=== PATIENT | female | born 1990 | race Asian ===

== ENCOUNTER → 2020-05-25 08:34 | Outpatient (CLI) | payer OTHER, SELFPAY ==
[2020-05-25 08:07] VITALS: BMI 23.9
[2020-05-25 12:01] LABS: Absolute Lymphocyte Count 2.67 X10^3/uL (0.83-4.51); Absolute Neutrophil Count 3.5 X10^3/uL (2.0-7.7); Basophil# 0.04 X10^3/uL; Basophil% 0.6 % (0-1); Eosinophil# 0.08 X10^3/uL; Eosinophils% 1.2 % (0-5); Hematocrit 43.5 % (37-47); Lymphocyte # 2.67 X10^3/ul (4.0); Lymphocyte % 39.3 % (19-41); Mean Corp Hgb Conc 32.2 g/dL (32-36); Mean Corpuscular Volume 90.2 fL (81-99); Mean Platelet Vol. 10.7 fl (6.2-12.0); Monocyte# 0.47 X10^3/uL; Monocyte% 6.9 % (0-10); NRBC Flagged by Analyzer 0 % (0-5); Neutrophil # 3.52 X10^3/uL (2.7-7.7); Neutrophil % 51.7 % (47-70); Platelet Count 298 K/mm3 (150-450); RBC Distribution Width CV 11.9 % (11.6-14.6); RBC Distribution Width SD 39.8 fl (35.1-43.9); Red Blood Count 4.82 M/mm3 (4.2-5.4); White Blood Count 6.8 K/mm3 (4.4-11.0)
[2020-05-25 12:02] LABS: Internal QC Validated? YES +Cl - CLEAR BKGD; Pregnancy, Urine Negative Negative
[2020-05-25 12:12] LABS: Vitamin B12 765 pg/mL (211-911); Vitamin D,25 Hydroxy 26.9 ng/mL
[2020-05-25 12:28] LABS: ALB/GLOB Ratio 1.1 RATIO (0.9-2.4); AST(SGOT) 19 U/L (15-37); Alanine Aminotransfer ALT/SGPT 24 U/L (13-56); Alkaline Phosphatase 84 U/L (45-117); Anion Gap 3 (5-15); BUN 9 mg/dL (7-18); BUN/Creat Ratio 12.8 RATIO (10-20); Calcium,Total 9.1 mg/dL (8.5-10.1); Chloride 107 mmol/L (98-107); Cholesterol 158 mg/dL (200); EST Glomerular Filtration Rate 104 mL/min (>60); Est Glom Filt Rate - Afr Amer 126 mL/min (>60); Globulin 3.8 g/dL (2.2-4.2); Glucose 93 mg/dL (74-106); High Density Lipoprotein 48 mg/dL; Potassium 4.1 mmol/L (3.5-5.1); Protein, Total 7.8 g/dL (6.4-8.2); Sodium Level 140 mmol/L (136-145); Thyroid Stim Hormone (TSH) 3.63 uIU/mL (0.358-3.74); Triglycerides 86 mg/dL; Very Low Density Lipoprotein 17 mg/dL (5-40)
== END ==
PROVIDERS: PCP Internal Medicine; Referring Provider Nurse Practitioner Family; Visit Provider Nurse Practitioner Family
DX: Z00.00 Encounter for general adult medical examination without abnormal findings (principal); Z13.29 Encounter for screening for other suspected endocrine disorder; N92.6 Irregular menstruation, unspecified; E53.8 Deficiency of other specified B group vitamins; E55.9 Vitamin D deficiency, unspecified
CPT/HCPCS: 36415; 80053; 80061; 81025; 82306; 82607; 84443; 85025

== ENCOUNTER → 2020-09-08 | Outpatient (CLI) | payer OTHER, SELFPAY ==
[2020-09-08 08:17] VITALS: BMI 23.9
[2020-09-13 18:49] LABS: HPV APTIMA, High Risk Negative (Negative)
== END | disposition home or self-care (01) ==
LOC: LABSPEC 16:42
PROVIDERS: PCP Internal Medicine; Referring Provider Obstetrics & Gynecology; Visit Provider Obstetrics & Gynecology
DX: Z12.4 Encounter for screening for malignant neoplasm of cervix (principal)
CPT/HCPCS: 87624; 88175; G0145

== ENCOUNTER → 2020-09-10 16:14 | Outpatient (CLI) | payer OTHER, SELFPAY ==
[2020-09-08 08:17] VITALS: BMI 23.9
--- NOTE | 2020-09-10 16:24 | US_ITS ---
STUDY: ULTRASOUND OF THE FEMALE PELVIS - COMPLETE REASON FOR EXAM: Female, 30 years old. INFERTILITY LMP: 09/01/2020 TECHNIQUE: Transabdominal and endovaginal TECHNICAL QUALITY: Adequate. COMPARISON: None. FINDINGS: The uterus is anteverted and is in a midline position. The uterus measures 6.8 x 5.4 x 2.7 cm with possible arcuate variant. Normal uterine cervix. The endometrium measures 5 mm in thickness, and is hyperechoic. There is no demonstrated endometrial mass. There is no demonstrated myometrial mass. I.U.D. - The patient does not have an I.U.D. The right ovary is visualized. The right ovary measures 3.4 x 2.5 x 2.5 cm. There is no right ovarian cyst or ovarian mass. There is no visualized right adnexal mass or complex lesion. There is normal arterial and normal venous vascularity. The left ovary is visualized. The left ovary measures 4.1 x 3.4 x 2.3 cm. There is no left ovarian cyst or ovarian mass. There is no visualized left adnexal mass or complex lesion. There is normal arterial and normal venous vascularity. There is no fluid in the cul-de-sac. US/Transvaginal Non- IMPRESSION: Possible arcuate uterus.. Electronically Signed: Nir Alfaro DO at 23:28 EST Tel [phone], Service support ,
--- NOTE | 2020-09-10 16:24 | US_ITS ---
STUDY: ULTRASOUND OF THE FEMALE PELVIS - COMPLETE REASON FOR EXAM: Female, 30 years old. INFERTILITY LMP: 09/01/2020 TECHNIQUE: Transabdominal and endovaginal TECHNICAL QUALITY: Adequate. COMPARISON: None. FINDINGS: The uterus is anteverted and is in a midline position. The uterus measures 6.8 x 5.4 x 2.7 cm with possible arcuate variant. Normal uterine cervix. The endometrium measures 5 mm in thickness, and is hyperechoic. There is no demonstrated endometrial mass. There is no demonstrated myometrial mass. I.U.D. - The patient does not have an I.U.D. The right ovary is visualized. The right ovary measures 3.4 x 2.5 x 2.5 cm. There is no right ovarian cyst or ovarian mass. There is no visualized right adnexal mass or complex lesion. There is normal arterial and normal venous vascularity. The left ovary is visualized. The left ovary measures 4.1 x 3.4 x 2.3 cm. There is no left ovarian cyst or ovarian mass. There is no visualized left adnexal mass or complex lesion. There is normal arterial and normal venous vascularity. There is no fluid in the cul-de-sac. US/Pelvic (Non ) IMPRESSION: Possible arcuate uterus.. Electronically Signed: Nir Alfaro DO at 23:28 EST Tel [phone], Service support ,
== END ==
PROVIDERS: PCP Internal Medicine; Referring Provider Obstetrics & Gynecology; Visit Provider Obstetrics & Gynecology
DX: N97.9 Female infertility, unspecified (principal)
CPT/HCPCS: 76830; 76856

== ENCOUNTER → 2020-11-07 | Outpatient (CLI) | payer OTHER, SELFPAY ==
[2020-09-08 08:17] VITALS: BMI 23.9
[2020-11-07 11:38] LABS: Prolactin 13.4 ng/mL
== END | disposition home or self-care (01) ==
LOC: LABSPEC 10:25 → LAB 12:55 → LABSPEC 11-08 08:04
PROVIDERS: PCP Internal Medicine; Referring Provider Obstetrics & Gynecology; Visit Provider Obstetrics & Gynecology
DX: N97.9 Female infertility, unspecified (principal)
CPT/HCPCS: 36415; 82627; 84146; 84403; 84443; 82626

== ENCOUNTER → 2021-01-10 | Outpatient (CLI) | payer OTHER, SELFPAY ==
[2021-01-10 14:20] VITALS: BMI 23.9
[2021-01-10 18:50] LABS: Amphetamine Urine VISTA NEGATIVE (<1000 ng/mL); Barbiturate Urine VISTA NEGATIVE (< 200 ng/mL); Benzodiazepine Urine VISTA NEGATIVE (< 200 ng/mL); Cocaine Urine VISTA NEGATIVE (< 300 ng/mL); Ecstacy Urine VISTA NEGATIVE (< 500 ng/mL); Methadone Urine VISTA NEGATIVE (< 300 ng/mL); PCP Urine VISTA NEGATIVE (< 25 ng/mL); THC Urine VISTA NEGATIVE (< 50 ng/mL); Vista UDS pH Range 6
[2021-01-13 04:12] LABS: Chlamydia By Nucleic Acid AMP Negative (Negative)
[2021-01-13 15:46] LABS: Gonococcus By Nucleic Acid AMP Negative (Negative)
== END | disposition home or self-care (01) ==
LOC: LABSPEC 16:34
PROVIDERS: PCP Internal Medicine; Referring Provider Obstetrics & Gynecology; Visit Provider Obstetrics & Gynecology
DX: Z34.90 Encounter for supervision of normal pregnancy, unspecified, unspecified trimester (principal)
CPT/HCPCS: 80307; 87086; 87491; 87591

== ENCOUNTER → 2021-01-28 12:18 | Outpatient (CLI) | payer BC, SELFPAY ==
[2021-01-10 14:20] VITALS: BMI 23.9
[2021-01-28 13:12] LABS: Absolute Lymphocyte Count 3.36 X10^3/uL (0.83-4.51); Absolute Neutrophil Count 8.3 X10^3/uL (2.0-7.7); Basophil# 0.05 X10^3/uL; Basophil% 0.4 % (0-1); Eosinophil# 0.17 X10^3/uL; Eosinophils% 1.4 % (0-5); Hematocrit 39.7 % (37-47); Hemoglobin 13.2 g/dL (12.0-15.0); Lymphocyte # 3.36 X10^3/ul (0.83-4.51); Lymphocyte % 26.8 % (19-41); Mean Corp Hgb Conc 33.2 g/dL (32-36); Mean Corpuscular Hgb 29.3 pg (27.0-32.0); Mean Platelet Vol. 10.7 fl (6.2-12.0); Monocyte# 0.67 X10^3/uL; Monocyte% 5.3 % (0-10); NRBC Flagged by Analyzer 0 % (0-5); Neutrophil # 8.27 X10^3/uL (2.7-7.7); Neutrophil % 65.9 % (47-70); Platelet Count 282 K/mm3 (150-450); RBC Distribution Width CV 12.3 % (11.6-14.6); RBC Distribution Width SD 39.2 fl (35.1-43.9); Red Blood Count 4.51 M/mm3 (4.2-5.4); White Blood Count 12.6 K/mm3 (4.4-11.0)
[2021-01-28 13:23] LABS: NATERA MAILED SPECIMEN
[2021-01-28 14:27] LABS: HIV - WCH Non-Reactive (Nonreactive); Hepatitis B Surface Antigen Non-Reactive (Nonreactive); Hepatitis C Antibody Non-Reactive (Nonreactive); Rubella IgG Reactive (Nonreactive); Syphilis Antibodies Non-reactive
== END ==
PROVIDERS: PCP Internal Medicine; Referring Provider Obstetrics & Gynecology; Visit Provider Obstetrics & Gynecology
DX: Z34.81 Encounter for supervision of other normal pregnancy, first trimester (principal); Z31.430 Encounter of female for testing for genetic disease carrier status for procreative management
CPT/HCPCS: 36415; 85025; 86703; 86762; 86780; 86803; 86850; 86900; 86901; 87340

== ENCOUNTER → 2021-03-28 | Outpatient (CLI) | payer BC, SELFPAY ==
[2021-03-28 09:45] VITALS: BMI 24.3
== END | disposition home or self-care (01) ==
PROVIDERS: PCP Nurse Practitioner Family; Referring Provider Obstetrics & Gynecology; Visit Provider Obstetrics & Gynecology
DX: O26.899 Other specified pregnancy related conditions, unspecified trimester (principal); R10.2 Pelvic and perineal pain; Z3A.00 Weeks of gestation of pregnancy not specified
CPT/HCPCS: 87086

== ENCOUNTER → 2021-03-29 08:07 | Outpatient (CLI) | payer BC, SELFPAY ==
[2021-03-28 09:45] VITALS: BMI 24.3
--- NOTE | 2021-03-29 08:15 | US_ITS ---
STUDY: SECOND AND THIRD TRIMESTER OBSTETRICAL ULTRASOUND REASON FOR EXAM: Female, 30 years old anatomy LMP: 11/06/2020. TECHNIQUE: Transabdominal TECHNICAL QUALITY: Adequate. PRIOR ULTRASOUND: None. FINDINGS: There is a single intrauterine fetus. The fetus is in a cephalic presentation. There is demonstrated cardiac activity with a heart rate of 157 bpm. There is a normal amniotic fluid volume. The largest amniotic fluid pocket measures 4.2 cm x 7.4 cm. The amniotic fluid index (FERNANDA) is within normal limits. The placenta is posterior in location and is not low lying. There are Grade 0 placental changes. The cervix measures 5.5 cm in length. The adnexal regions are not visualized. BIOMETRY: BPD: 4.54 cm: 19 weeks, 5 days HC: 16.84 cm: 19 weeks, 3 days AC: 15.04 cm: 20 weeks, 1 days FL: 3.25 cm: 20 weeks, 1 days CI: 79.8% FL/BPD: 71.7% FL/HC: FL/AC: 21.6% HC/AC: 1.12 age by current US: 19 weeks, 3 days. PHOEBE by current US: 08/20/2021. Estimated weight: 337 grams, +/- 51 grams, 31 %. Age by LMP: 20 weeks, 3 days. PHOEBE by LMP: 08/13/2021. ANATOMY: Gender: Female Cranium: Normal lateral ventricles. Normal choroid plexus. Normal cerebellum. Normal cisterna magna. Normal face, nose and lips. Chest: Normal 4-chamber heart. Abdomen/Pelvis: Normal diaphragm. Normal stomach. Normal abdominal wall. Normal cord insertion. Normal 3 vessel cord. Normal kidneys. Normal bladder. Spine: Normal cervical spine. Normal thoracic spine. Normal lumbar spine. Normal sacrum. Extremities: Normal bilateral upper extremities. Normal bilateral lower extremities. IMPRESSION: Single live intrauterine gestation with a mean gestational age of 19 weeks and 3 days. Electronically Signed: Yehuda Osuna MD at 11:34 EDT , Service support , STUDY: FIRST TRIMESTER OBSTETRICAL ULTRASOUND REASON FOR EXAM: Female, 30 years old anatomy TECHNIQUE: Transvaginal TECHNICAL QUALITY: Adequate. PRIOR ULTRASOUND: None. FINDINGS: The cervix measures 5.5 cm in length. US/OB Anatomy Scan IMPRESSION: The cervix measures 5.5 cm in length. Electronically Signed: Yehuda Osuna MD at 11:35 EDT , Service support ,
== END ==
PROVIDERS: PCP Nurse Practitioner Family; Referring Provider Obstetrics & Gynecology; Visit Provider Obstetrics & Gynecology
DX: Z34.02 Encounter for supervision of normal first pregnancy, second trimester (principal); Z3A.19 19 weeks gestation of pregnancy
CPT/HCPCS: 76805; 76817

== ENCOUNTER → 2021-05-21 08:13 | Outpatient (CLI) | payer BC, SELFPAY ==
[2021-05-21 09:25] LABS: Absolute Lymphocyte Count 2.91 X10^3/uL (0.83-4.51); Absolute Neutrophil Count 8.6 X10^3/uL (2.0-7.7); Basophil# 0.06 X10^3/uL; Basophil% 0.5 % (0-1); Eosinophil# 0.12 X10^3/uL; Eosinophils% 0.9 % (0-5); Hematocrit 36.4 % (37-47); Hemoglobin 11.8 g/dL (12.0-15.0); Lymphocyte # 2.91 X10^3/ul (0.83-4.51); Lymphocyte % 22.9 % (19-41); Mean Corp Hgb Conc 32.4 g/dL (32-36); Mean Corpuscular Hgb 29.8 pg (27.0-32.0); Mean Corpuscular Volume 91.9 fL (81-99); Monocyte# 0.74 X10^3/uL; Monocyte% 5.8 % (0-10); NRBC Flagged by Analyzer 0 % (0-5); Neutrophil # 8.59 X10^3/uL (2.7-7.7); Neutrophil % 67.5 % (47-70); Platelet Count 304 K/mm3 (150-450); RBC Distribution Width CV 12.8 % (11.6-14.6); RBC Distribution Width SD 43.2 fl (35.1-43.9); Red Blood Count 3.96 M/mm3 (4.2-5.4); White Blood Count 12.7 K/mm3 (4.4-11.0)
[2021-05-21 09:49] LABS: Glucose Challenge Gest 1H 50g 193 mg/dL (70-140)
== END ==
PROVIDERS: PCP Nurse Practitioner Family; Referring Provider Obstetrics & Gynecology; Visit Provider Obstetrics & Gynecology
DX: Z34.01 Encounter for supervision of normal first pregnancy, first trimester (principal); Z13.1 Encounter for screening for diabetes mellitus
CPT/HCPCS: 36415; 82950; 85025

== ENCOUNTER → 2021-06-02 09:33 | Outpatient (CLI) | payer BC, SELFPAY ==
[2021-06-02 10:49] LABS: Glucose GTT-Gestation. Fasting 101 mg/dL (<105)
[2021-06-02 12:05] LABS: Glucose GTT-Gestational 1 Hr 203 mg/dL (<190)
[2021-06-02 13:07] LABS: Glucose GTT-Gestational 2 Hr 149 mg/dL (<165)
[2021-06-02 14:05] LABS: Glucose GTT-Gestational 3 Hr 98 L (<145)
== END ==
PROVIDERS: Obstetrics & Gynecology; PCP Nurse Practitioner Family; Referring Provider Obstetrics & Gynecology; Visit Provider Obstetrics & Gynecology
DX: Z13.1 Encounter for screening for diabetes mellitus (principal)
CPT/HCPCS: 82951; 82952

== ENCOUNTER → 2021-06-20 09:00 | Outpatient (CLI) | payer BC, SELFPAY ==
--- NOTE | 2021-06-20 09:08 | US_ITS ---
STUDY: SECOND AND THIRD TRIMESTER OBSTETRICAL ULTRASOUND - LIMITED REASON FOR EXAM: Female, 30 years old growth -- 32 weeks LMP: 11/06/2020. PRIOR ULTRASOUND: Comparison is made with prior study dated 03/29/2001. TECHNIQUE: Transabdominal TECHNICAL QUALITY: Adequate. FINDINGS: There is a single intrauterine fetus. The fetus is in a cephalic presentation. There is demonstrated cardiac activity with a heart rate of 160 bpm. There is a normal amniotic fluid volume. The largest amniotic fluid pocket measures 6.7 cm. The amniotic fluid index (FERNANDA) is 16.4 cm. The placenta is posterior in location and is not low lying. There are Grade 0 placental changes. The cervix measures 3.2 cm in length. BIOMETRY: BPD: 7.89 cm: 31 weeks, 4 days HC: 29.09 cm: 32 weeks, 0 days AC: 20.56 cm: 32 weeks, 4 days FL: 6.34 cm: 32 weeks, 5 days Age by LMP: 32 weeks, 2 days. PHOEBE by LMP: 08/13/2021. age by prior US: 31 weeks, 2 days. PHOEBE by prior US: 08/20/2021. age by current US: 32 weeks, 1 days. PHOEBE by current US: 08/14/2021. Estimated weight: 2008 grams, +/- 31 grams, 49 percentile. US/OB Limited With Biometrics IMPRESSION: Single live intrauterine gestation with a mean gestational age of 31 weeks and 2 days. The measurements obtained today fall within normal expected range. Electronically Signed: Yehuda Osuna MD at 15:44 EDT , Service support ,
== END ==
PROVIDERS: PCP Nurse Practitioner Family; Referring Provider Obstetrics & Gynecology; Visit Provider Obstetrics & Gynecology
DX: O24.419 Gestational diabetes mellitus in pregnancy, unspecified control (principal); Z3A.31 31 weeks gestation of pregnancy
CPT/HCPCS: 76816

== ENCOUNTER 2021-06-29 12:30 | Outpatient (RCR) | payer BC, SELFPAY | END 2021-07-03 23:59 | LOC: DC 12:30 | PROVIDERS: PCP Nurse Practitioner Family; Visit Provider Obstetrics & Gynecology | DX: O24.419 Gestational diabetes mellitus in pregnancy, unspecified control (principal); Z3A.00 Weeks of gestation of pregnancy not specified | CPT/HCPCS: 97802; 97803 ==

== ENCOUNTER 2021-07-06 14:55 | Outpatient (RCR) | payer BC, SELFPAY | END 2021-08-02 23:59 | LOC: DC 14:55 | PROVIDERS: PCP Nurse Practitioner Family; Visit Provider Obstetrics & Gynecology | DX: O24.419 Gestational diabetes mellitus in pregnancy, unspecified control (principal); Z3A.00 Weeks of gestation of pregnancy not specified ==

== ENCOUNTER → 2021-07-18 09:04 | Outpatient (CLI) | payer BC, SELFPAY ==
--- NOTE | 2021-07-18 09:09 | US_ITS ---
STUDY: SECOND AND THIRD TRIMESTER OBSTETRICAL ULTRASOUND - LIMITED REASON FOR EXAM: Female, 30 years old growth -- 36 weeks LMP: 11/06/2020. PRIOR ULTRASOUND: Comparison is made with prior study dated 06/20/2021. TECHNIQUE: Transabdominal TECHNICAL QUALITY: Adequate. FINDINGS: There is a single intrauterine fetus. The fetus is in a cephalic presentation. There is demonstrated cardiac activity with a heart rate of 141 bpm. There is a normal amniotic fluid volume. The largest amniotic fluid pocket measures 7.9 cm. The amniotic fluid index (FERNANDA) is 18.8 cm. The placenta is fundal and posterior in location. There are Grade 1 placental changes. BIOMETRY: BPD: 8.73 cm: 35 weeks, 1 days HC: 31.66 cm: 35 weeks, 4 days AC: 32.6 cm: 36 weeks, 3 days FL: 7.14 cm: 37 weeks, 4 days Age by LMP: 36 weeks, 2 days. PHOEBE by LMP: 08/13/2021. age by prior US: 36 weeks, 1 days. PHOEBE by prior US: 08/14/2021. age by current US: 35 weeks, 6 days. PHOEBE by current US: 08/16/2021. Estimated weight: 2935 grams, +/- 440 grams, 56 percentile. US/OB Limited With Biometrics IMPRESSION: Single live intrauterine gestation with a mean gestational age of 36 weeks and 1 day. The measurements obtained today fall within the normal expected range. Electronically Signed: Yehuda Osuna MD at 15:28 EST , Service support ,
== END ==
PROVIDERS: PCP Nurse Practitioner Family; Visit Provider Obstetrics & Gynecology
DX: O24.419 Gestational diabetes mellitus in pregnancy, unspecified control (principal); Z3A.36 36 weeks gestation of pregnancy
CPT/HCPCS: 76816

== ENCOUNTER → 2021-07-22 | Outpatient (CLI) | payer BC, SELFPAY | END | disposition home or self-care (01) | PROVIDERS: PCP Nurse Practitioner Family; Visit Provider Obstetrics & Gynecology | DX: Z34.03 Encounter for supervision of normal first pregnancy, third trimester (principal) | CPT/HCPCS: 87077; 87081; 87186 ==

== ENCOUNTER 2021-08-07 19:35 | Inpatient (IN) | payer BC, SELFPAY ==
[2021-08-07 19:48] VITALS: BMI 28.8
[2021-08-07 19:55] VITALS: BP 120/75; PULSE 100; TEMP 36.4
[2021-08-07 19:57] VITALS: PULSE 103; O2SAT 98
[2021-08-07] MEDS: Lactated Ringers 1,000 ML 50 ML IV (20:25)
[2021-08-07 21:12] LABS: Absolute Lymphocyte Count 3.14 X10^3/uL (0.83-4.51); Absolute Neutrophil Count 6.2 X10^3/uL (2.0-7.7); Basophil# 0.06 X10^3/uL; Basophil% 0.6 % (0-1); Eosinophil# 0.15 X10^3/uL; Eosinophils% 1.4 % (0-5); Hematocrit 41.3 % (37-47); Hemoglobin 13.7 g/dL (12.0-15.0); Lymphocyte # 3.14 X10^3/ul (0.83-4.51); Lymphocyte % 29.3 % (19-41); Mean Corp Hgb Conc 33.2 g/dL (32-36); Mean Corpuscular Hgb 28.7 pg (27.0-32.0); Mean Corpuscular Volume 86.4 fL (81-99); Monocyte# 1.01 X10^3/uL; Monocyte% 9.4 % (0-10); NRBC Flagged by Analyzer 0 % (0-5); Neutrophil # 6.24 X10^3/uL (2.7-7.7); Neutrophil % 58.2 % (47-70); Platelet Count 279 K/mm3 (150-450); RBC Distribution Width SD 47.1 fl (35.1-43.9); Red Blood Count 4.78 M/mm3 (4.2-5.4); White Blood Count 10.7 K/mm3 (4.4-11.0)
[2021-08-07 21:13] VITALS: BP 107/73; PULSE 103; PULSE 105; TEMP 36.6; O2SAT 98
[2021-08-07 21:20] LABS: Bedside Glucose 86 mg/dL (70-110)
[2021-08-07 22:13] VITALS: BP 111/69; PULSE 96; TEMP 36.4; O2SAT 98
--- NOTE | 2021-08-07 22:16 | HP.PCM.OB_ITS ---
HPI - General General Date of Admission: 08/07/21 HPI Narrative ELVIS CRAIN, is a 30 @ 39 weeks 1 day who presents for induction of labor for gestational diabetes, diet controlled Maternal Data Information PHOEBE Calculator Estimated Delivery Date Method Current WG Current Estimate 08/13/21 LMP (Certain) 39w 1d Other Estimates 08/14/21 Ultrasound #1 39w 0d PFSH PFSH Medical History Abnormal glucose affecting Gestational diabetes No pertinent past medical history Positive GBS test Home Medications docosahexaenoic acid 200 mg capsule mg PO 01/10/21 [History Last Taken Unknown] cholecalciferol (vitamin D3) 25 mcg (1,000 unit) capsule 25 mcg PO DAILY 06/20/21 [History Last Taken Unknown] metformin 500 mg tablet 1,000 mg PO BID #224 tab 06/21/21 [Rx Last Taken Unknown] Allergy/AdvReac Type Severity Reaction Status Date / Time No Known Allergies Allergy Verified 08/05/21 15:09 Family History Father Hypertension Diabetes Mother Diabetes Social History Smoking Status: Never smoker alcohol intake: current alcohol intake frequency: holidays/special occasions only substance use type: does not use caffeine: Yes what type of physical activity do you participate in: walking frequency: daily seatbelt use: always do you feel safe at home: Yes additional social history: - Bryant History 1 Elective abortions Hx Para 0 Spontaneous abortions Hx # Term Pregnancies Ectopic pregnancies Hx # Pregnancies Multiple births # of living children Visit Details Expected Delivery Route/Plan Labor Preferences- CB/BF classes: [] labor support person: Bryant labor intervention preferences: understands IOL at 39 weeks. pain management options preferred: planning for epidural cut cord/dad catch: 60 second cord cut delay. Dad is very sensitive and may not be able to cut cord : plans to bottle feed PP control planned: [] discussed possible routes of delivery and associated risks: discussed vag vs 07/27 special requests: none Plans covid status: received Soicos x2 doses - last dose 05/13 flu vaccine: [] tdap vaccine: 06/06 rhogam: [] LARC form signed: [] Problem list reviewed and updated with the most current plan of care details and appropriate orders placed. Relevant counseling for the gestational age provided. Continue routine care and follow up unless otherwise noted in visit notes/problem list details OB Flowsheet Initial Weight: Not Recorded Date -?-?-?-?-?-?-?-?-?-?-?-?- EGA Weight BP Urine Prot -?-?-?-?-?-?-?-?-?-?-?-?- Glucose FHR FuHt Pres Dilation -?-?-?-?-?-?-?-?-?-?-?-?- Effaced St Visit Note 01/10/21 -?-?-?-?-?-?-?-?-?-?-?-?- 9w 2d 129 lb 6 oz 102/62 -?-?-?-?-?-?-?-?-?-?-?-?- 170 -?-?-?-?-?-?-?-?-?-?-?-?- GP - CRL consist ent with LMP 02/11/21 -?-?-?-?-?-?-?-?-?-?-?-?- 13w 6d 125 lb 2 oz 120/78 Nega tive -?-?-?-?-?-?-?-?-?-?-?-?- Negative -?-?-?-?-?-?-?-?-?-?-?-?- 03/11/21 -?-?-?-?-?-?-?-?-?-?-?-?- 17w 6d 130 lb 8 oz 108/70 -?-?-?-?-?-?-?-?-?-?-?-?- 150 -?-?-?-?-?-?-?-?-?-?-?-?- GP - no cramping or bleeding. +FM. Discussed tx of constipation. 03/28/21 -?-?-?-?-?-?-?-?-?-?-?-?- 20w 2d 133 lb 4 oz 100/68 Nega tive -?-?-?-?-?-?-?-?-?-?-?-?- Negative 155 0 -?-?-?-?-?-?-?-?-?-?-?-?- GP - work in for cramping. Pain consistent with round ligament pain. Cervix closed. Anatomy changed to [facility] due to inability to schedule until 24w with MFM. 04/08/21 -?-?-?-?-?-?-?-?-?-?-?-?- 21w 6d 137 lb 100/60 -?-?-?-?-?-?-?-?-?-?-?-?- 150 -?-?-?-?-?-?-?-?-?-?-?-?- SM- no vb lof go od fm no reuglar ctx 05/06/21 -?-?-?-?-?-?-?-?-?-?-?-?- 25w 6d 143 lb 6 oz 110/80 Nega tive -?-?-?-?-?-?-?-?-?-?-?-?- Negative 145 25 -?-?-?-?-?-?-?-?-?-?-?-?- GP - no LOF, VB, DFM, ctx. Discussed management of constipation. GCT next visit. 05/20/21 -?-?-?-?-?-?-?-?-?-?-?-?- 27w 6d 144 lb 102/70 Negative -?-?-?-?-?-?-?-?-?-?-?-?- Negative 155 28 -?-?-?-?-?-?-?-?-?-?-?-?- GP - no LOF, VB, DFM, ctx. Received second dose of covid vaccine 05/13. Discussed TDAP and flu. Plan GCT tomorrow. 06/06/21 -?-?-?-?-?-?-?-?-?-?-?-?- 30w 2d 148 lb 8 oz 114/78 Nega tive -?-?-?-?-?-?-?-?-?-?-?-?- Negative 140 30 -?-?-?-?-?-?-?-?-?-?-?-?- GP - no LOF, VB, DFM, ctx. Discussed GDM diagnosis and management. Has a glucometer at home - will call with brand. 06/20/21 -?-?-?-?-?-?-?-?-?-?-?-?- 32w 2d 146 lb 100/70 Negative -?-?-?-?-?-?-?-?-?-?-?-?- Negative 154 32 -?-?-?-?-?-?-?-?-?-?-?-?- MH-good Fm. No V B, LOF. Saw endocrine today. Plans metformin. Normal growth US today. NST end of week 06/24/21 -?-?-?-?-?-?-?-?-?-?-?-?- 32w 6d 146 lb 2 oz 108/80 Nega tive -?-?-?-?-?-?-?-?-?-?-?-?- Negative -?-?-?-?-?-?-?-?-?-?-?-?- 06/27/21 -?-?-?-?-?-?-?-?-?-?-?-?- 33w 2d 145 lb 8 oz Negative -?-?-?-?-?-?-?-?-?-?-?-?- Negative -?-?-?-?-?-?-?-?-?-?-?-?- 06/29/21 -?-?-?-?-?-?-?-?-?-?-?-?- 33w 4d 146 lb 4 oz 104/70 Nega tive -?-?-?-?-?-?-?-?-?-?-?-?- Negative 140 -?-?-?-?-?-?-?-?-?-?-?-?- JV- reactive NST . Seeing area field worker today. glucose log reviewed. Fasting's in t he 90's. 07/04/21 -?-?-?-?-?-?-?-?-?-?-?-?- 34w 2d 145 lb 4 oz 112/76 Nega tive -?-?-?-?-?-?-?-?-?-?-?-?- Negative 140 -?-?-?-?-?-?-?-?-?-?-?-?- SM- no vb lof go od fm no reuglar ctx reviewed BS 07/07/21 -?-?-?-?-?-?-?-?-?-?-?-?- 34w 5d 146 lb 102/62 Negative -?-?-?-?-?-?-?-?-?-?-?-?- Negative 140 -?-?-?-?-?-?-?-?-?-?-?-?- SM- reviewed BS, no vb lof good fm no reuglar ctx 07/11/21 -?-?-?-?-?-?-?-?-?-?-?-?- 35w 2d 147 lb 106/72 Negative -?-?-?-?-?-?-?-?-?-?-?-?- Negative 140 -?-?-?-?-?-?-?-?-?-?-?-?- SM- nst 07/13/21 -?-?-?-?-?-?-?-?-?-?-?-?- 35w 4d 146 lb 2 oz 98/60 Trac e -?-?-?-?-?-?-?-?-?-?-?-?- Negative 150 -?-?-?-?-?-?-?-?-?-?-?-?- JV- NST reactive . plan for GBS at 36 weeks and IOL at 39 weeks. 07/18/21 -?-?-?-?-?-?-?-?-?-?-?-?- 36w 2d 150 lb 2 oz 110/72 Nega tive -?-?-?-?-?-?-?-?-?-?-?-?- Negative 150 -?-?-?-?-?-?-?-?-?-?-?-?- MH-NST only reac tive 07/22/21 -?-?-?-?-?-?-?-?-?-?-?-?- 36w 6d 149 lb 110/74 Negative -?-?-?-?-?-?-?-?-?-?-?-?- Negative 140 -?-?-?-?-?-?-?-?-?-?-?-?- JV- no lof, vagi nal bleeding, or dec fm. NST reactive and gbs collected. glucose log reviewed and normal 07/25/21 -?-?-?-?-?-?-?-?-?-?-?-?- 37w 2d 146 lb 8 oz 104/74 Nega tive -?-?-?-?-?-?-?-?-?-?-?-?- Negative 140 -?-?-?-?-?-?-?-?-?-?-?-?- MH-NST only reac tive. 07/27/21 -?-?-?-?-?-?-?-?-?-?-?-?- 37w 4d 148 lb 108/74 Negative -?-?-?-?-?-?-?-?-?-?-?-?- Negative 145 37 Cephalic 1 -?-?-?-?-?-?-?-?-?-?-?-?- 50 -2 JV- nst re active. lots of questions answered. 08/01/21 -?-?-?-?-?-?-?-?-?-?-?-?- 38w 2d 148 lb 8 oz 104/70 Nega tive -?-?-?-?-?-?-?-?-?-?-?-?- Negative 140 -?-?-?-?-?-?-?-?-?-?-?-?- mh-nst only reac tive 08/05/21 -?-?-?-?-?-?-?-?-?-?-?-?- 38w 6d 149 lb 6 oz 112/80 Nega tive -?-?-?-?--?-?-?-?-?-?-?-?- Negative 135 39 Cephalic 1 -?-?-?-?-?-?-?-?-?-?-?-?- 50 -2 JV- reacti ve nst, no lof, vaginal bleeding or dec fm. IOL sunday08/07/21 -?-?-?-?-?-?-?-?-?-?-?-?- 39w 1d 152 lb 12.485 oz 120 /75 107/73 111/69 -?-?-?-?-?-?-?-?-?-?-?-?- -?-?-?-?-?-?-?-?-?-?-?-?- ROS Constitutional Constitutional: Denies change in weight, fatigue, fever(s), headache(s), poor appetite or weakness Eyes Eyes: Denies blurry vision, change in vision, seeing flashes or spots in vision ENT HEENT: Denies dizziness, headache(s), loss taste/smell or sore throat Cardiovascular Cardiovascular: Denies chest pain, dizziness, dyspnea, irregular heart rhythm, leg edema, palpitations, rapid heart rate or vomiting Respiratory/Chest Respiratory/Chest: Denies chest tightness, cough, dyspnea or breast pain Gastrointestinal Gastrointestinal: Denies abdominal pain, anorexia, constipation, cramping, diarrhea, hemorrhoids, vomiting or weight changes Genitourinary Genitourinary: Denies dysuria, flank pain, genital lesions, genital pain, urinary frequency or urinary urgency Musculoskeletal Musculoskeletal: Denies back pain, difficulty walking, joint pain, limited range of motion, muscle cramps or numbness Integumentary Integumentary: Denies lesions or unusual bruising Neurologic Neurologic: Denies abnormal movements, abnormal speech, dizziness, numbness, seizure-like activity or syncope Psychiatric Psychiatric: Denies anxiety, behavioral changes, change in appetite, change in libido, cognitive impairment, confusion, depression, difficulty concentrating, hallucinations or suicidal thoughts Endocrine Endocrinology: Denies excessive sweating, polydipsia or polyuria Hematologic/Lymphatic Hematologic/Lymphatic: Denies easy bleeding, easy bruising or lymphadenopathy Allergic/Immunologic Allergic/Immunologic: Denies itchy eyes, lip swelling, seasonal rhinorrhea, rhinitis, throat swelling, tongue swelling, eczemia, wheezing or asthma Vital Signs Vital Signs Vital Signs: 08/07/21 19:55 08/07/21 19:57 08/07/21 21:12 Temperature 97.5 F L Temperature Source Temporal Temporal Pulse Rate 100 103 H Blood Pressure 120/75 BP Systolic 120 BP Diastolic 75 Pulse Ox 98 08/07/21 21:13 08/07/21 22:13 Temperature 97.9 F 97.5 F L Temperature Source Temporal Pulse Rate 105 H 96 Blood Pressure 107/73 111/69 BP Systolic 107 111 BP Diastolic 73 69 Pulse Ox 98 98 Weight Weight: 152 lb 12.485 oz Body Mass Index (BMI) 28.8 Physical Exam Const alert, oriented x3, no apparent distress and healthy appearing General Appearance: cooperative; Negative for anxious HEENT normocephalic Face and Sinus: normal facial exam Eyes EOMs intact bilaterally and no scleral icterus General Eye: normal appearance of both eyes Neck full ROM and supple Lymph Lymphatic: no lymphadenopathy noted Chest Chest: abnormal inspection of the chest Resp normal respiratory effort Effort and Inspection: able to speak in complete sentences Cardio regular rate GI soft to palpation and non-tender Inspection: gravid Palpation: soft; Negative for tender external exam normal Manual OB Exam: dilated 1/50/-2 Back/Spine no CVA tenderness Extremity normal to inspection, full ROM and no clubbing, cyanosis or edema General Extremity: Negative for calf tenderness or edema Skin Lesions: no lesions Rashes: no rashes Psych mental status grossly normal Labs Labs Labs: Blood Type B POSITIVE Antibody Screen NEGATIVE Hct 41.3 % (37-47) Hgb 13.7 g/dL (12.0-15.0) Obstetrics US Syphilis Total Ab Non-reactive Rubella IgG Antibody Reactive (Nonreactive) Hep Bs Antigen Non-Reactive (Nonreactive) Neisseria gonorrhoeae DNA (FERCHO) Negative (Negative) HIV 1&2 Antibody Non-Reactive (Nonreactive) Glucose 1 Hr 50 gm 193 mg/dL (70-140) H Miscellaneous Test Assessment & Plan (1) Positive GBS test: COMMENT: treat in labor (2) Gestational diabetes: QUALIFIERS: Gestational diabetes mellitus control: unspecified Trimester: third trimester Qualified Code(s): O24.419 - Gestational diabetes mellitus in , unspecified control COMMENT: nl growth 07/18, per pt request metformin managed by Endocrinology. Growth at 32 and 36w. Twice wkly NST at 32 wk.Discussed timing of delivery 39w. IOL 08/07 @ 7pm (3) : QUALIFIERS: Weeks of gestation: 38 weeks Qualified Code(s): Z3A.38 - 38 weeks gestation of COMMENT: NIPT low risk, carrier neg. ntd screening declined.anatomy nl; NL growth 06/20/21 (4) Supervision of normal : QUALIFIERS: Normal : normal first Trimester: third trimester Qualified Code(s): Z34.03 - Encounter for supervision of normal first , third trimester COMMENT: PRR PHOEBE:08/13/21 girl! Spouse:Bryant PLAN: Patient presents IOL, plan management for with cytotec tonight then pitocin . Pain management: plans epidural. GBS negative. Management of any complications: none I have reviewed the [facility] and made any clinically relevant updates.
[2021-08-07 22:20] LABS: Bedside Glucose 99 mg/dL (70-110)
[2021-08-07] MEDS: miSOPROStol 25 MCG TABLET VAGINAL (22:28)
[2021-08-07 23:20] VITALS: BP 112/71; PULSE 99; O2SAT 99
[2021-08-07 23:21] VITALS: TEMP 36.5
[2021-08-07 23:30] LABS: Bedside Glucose 105 mg/dL (70-110)
[2021-08-07] MEDS: Famotidine 20 MG Tablet PO (23:48)
[2021-08-08] VITALS (55 sets, daily range): BP systolic 94–127; BP diastolic 57–89; PULSE 84–130; RESP 16; TEMP 36.1–37.3; O2SAT 97–100
[2021-08-08] MEDS: miSOPROStol 50 MCG TABLET VAGINAL (02:35)
[2021-08-08 03:30] LABS: Bedside Glucose 86 mg/dL (70-110)
[2021-08-08 07:26] LABS: Bedside Glucose 83 mg/dL (70-110)
[2021-08-08] MEDS: Oxytocin 30 units/NS 500 ml 30 UNITS/500 ML IV.SOLN IV (08:55)
[2021-08-08] MEDS: Lactated Ringers 500 ML 999 ML IV (09:51)
[2021-08-08] MEDS: fentaNYL-bupivacaine (epidural) 100 ML BAG EPIDURAL ×2 (10:45→15:52)
[2021-08-08] MEDS: Penicillin G 3,000,000 Units 50 ML 100 UNITS IV ×2 (11:15→15:22)
[2021-08-08] MEDS: Lactated Ringers 1,000 ML 200 ML IV (11:15)
[2021-08-08 11:20] LABS: Bedside Glucose 91 mg/dL (70-110)
[2021-08-08 13:20] LABS: Bedside Glucose 87 mg/dL (70-110)
--- NOTE | 2021-08-08 14:07 | PCM.PN.BLA ---
Progress Note doing well s/p epi current tracing: FHT: 140 Moderate variability reactive early decelerations category I tracing [place]: q1-4 Contractions reviewed tracing abnormalities since last note: early decels A/P: continue pit per protocol arom clear fluid, monitors placed internall
[2021-08-08 14:36] LABS: Bedside Glucose 76 mg/dL (70-110)
[2021-08-08 15:51] LABS: Bedside Glucose 69 mg/dL (70-110)
[2021-08-08 16:31] LABS: Bedside Glucose 77 mg/dL (70-110)
--- NOTE | 2021-08-08 17:13 | EX.PCM.OBRPT ---
Assessment & Plan (1) : QUALIFIERS: Weeks of gestation: 38 weeks Qualified Code(s): Z3A.38 - 38 weeks gestation of COMMENT: NIPT low risk, carrier neg. ntd screening declined.anatomy nl; NL growth 06/20/21 (2) Gestational diabetes: QUALIFIERS: Gestational diabetes mellitus control: unspecified Trimester: third trimester Qualified Code(s): O24.419 - Gestational diabetes mellitus in , unspecified control COMMENT: nl growth 07/18, per pt request metformin managed by Endocrinology. Growth at 32 and 36w. Twice wkly NST at 32 wk.Discussed timing of delivery 39w. IOL 12/ @ 7pm (3) Positive GBS test: COMMENT: treat in labor (4) Supervision of normal : QUALIFIERS: Normal : normal first Trimester: third trimester Qualified Code(s): Z34.03 - Encounter for supervision of normal first , third trimester COMMENT: PRR PHOEBE:08/13/21 girl! Spouse:Bryant (5) Vaginal delivery: COMMENT: 39 SM IOL [id number] girl Maternal Data Information PHOEBE Calculator Estimated Delivery Date Method Current WG Current Estimate 08/13/21 LMP (Certain) 39w 2d Other Estimates 08/14/21 Ultrasound #1 39w 1d Vaginal Delivery Operative Information Date of Procedure: 08/08/21 Pre-Operative Diagnosis: iol [id number] Post-Operative Diagnosis: same Surgery / Procedure Performed: Spontaneous Vaginal Delivery Type of Anesthesia: Epidural Special Medications: none Estimated Blood Loss: 100 Fluids Replaced: crystalloid Findings Description of Procedure: Patient began pushing and delivered the head in the ROBERT presentation. The head was delivered atraumatically and a loose nuchal cord ?1 was identified and the infant delivered through without complication. The anterior and posterior shoulders delivered without complication followed by the rest of the and the was placed on the maternal abdomen. Delayed cord clamping was employed for approximately 60 seconds. Cord was clamped and cut and gentle traction was applied to the cord and the placenta delivered spontaneously immediately following it was noted to be intact with three-vessel cord. The perineum and vagina were inspected and noted to have a small first-degree perineal laceration repaired in the usual fashion with 3-0 Vicryl Rapide. EBL was 100 cc. Patient and infant tolerated delivery well. Presentation: ROBERT Amniotic Membrane Rupture Type: Artificial Amniotic Fluid Description: Clear Placental Delivery Description: Spontaneous Placenta Disposition: [facility] Cord Vessel Description: 3 Vessels Cord Entanglement: None Infant A Gender: Female Delayed Cord Clamping: Yes Post Vaginal Delivery Medications Given After Delivery: IV Pitocin Episiotomy Description: None Laceration: Perineal Extension/lac and 1st degree Complication Complications: None Procedures Urinary/Genital [id number]: [id number] Vaginal Delivery [facility]
[2021-08-08] MEDS: Oxytocin 30 units/NS 500 ml 30 UNITS/500 ML IV.SOLN 334 UNITS IV (17:25)
--- NOTE | 2021-08-08 17:32 | DCINST_ITS ---
Discharge Instructions Diet Discharge Diet: No restrictions Activity Discharge Activity: Return to Normal Activity, May Not Drive (while taking narcotic pain medications.) and May Shower May resume sexual activity in: 4-6 weeks Dressing / Incision Call your doctor if your incision/area has: Continuous Slow Oozing, Sudden Increased Bleeding, Increased Pain/ Swelling, Increased Redness and Foul Smelling Discharge Follow Up Care Please Follow Up With: Arin Lorenz MD When: Call [phone] to make an appointment with your doctor in 6 weeks. If you had elevated blood pressure or 4th degree laceration, you will need to be seen in 2 weeks. Test Results: Test results from this visit will be discussed in further detail at your follow-up appointment, if applicable. Discharge Plan Admission Admit Date/Time: 08/07/21 19:35 Primary Reason for Your Visit: vaginal delivery Attending Provider: Shasta Rider Primary Care Provider: Rajeev Benson NP Discharge Orders/Prescriptions Prescriptions: No Action cholecalciferol (vitamin D3) 25 mcg (1,000 unit) capsule 25 mcg PO DAILY RF: 0 #2 Tablet 2 tab PO DAILY RF: 0 metformin 500 mg tablet 1,000 mg PO BID RF: 0 Referrals / Follow Up: Rajeev Benson NP, [employer] [Primary Care Provider] - Disposition Disposition (needs filled in before D/C Order can be placed): Home, Self Care
[2021-08-08 18:20] LABS: Bedside Glucose 82 mg/dL (70-110)
[2021-08-08] MEDS: Acetaminophen 500 MG Tablet 1000 MG PO (22:11)
[2021-08-09 00:33] VITALS: BP 113/74; PULSE 104; RESP 14; TEMP 36.8
[2021-08-09 03:10] VITALS: BP 100/67; PULSE 94; RESP 18; TEMP 36.6
[2021-08-09 06:05] LABS: Bedside Glucose 97 mg/dL (70-110)
[2021-08-09] MEDS: Senna/Docusate Sodium 1 Tablet PO (06:12)
--- NOTE | 2021-08-09 07:41 | PCM.PN.OB ---
Subjective Subjective Patient doing well without complaints. Tolerating PO. Ambulating and voiding without difficulty. Feeding well. Denies chest pain, shortness of breath, calf pain/swelling, fevers, chills, lightheadedness. Some discomfort at epidural site-tylenol helpful Objective Data Objective Data Vital Signs: Vital Signs Temp Pulse Resp BP Pulse Ox 97.9 F 94 18 100/67 100 08/09/21 03:10 08/09/21 03:10 08/09/21 03:10 08/09/21 03:10 08/08/21 17:35 Oxygen Delivery Method Room Air Weight: 152 lb 12.485 oz Body Mass Index (BMI) 28.8 Intake & Output: Intake and Output for Last 24 Hours 08/07/21 08/08/21 08/09/21 23:59 23:59 23:59 Intake Total 104.17 / 104.17 3265.53 / 3265.53 Output Total 150 / 150 1350 / 1350 Balance -45.83 / -45.83 1915.53 / 1915.53 Lab / Micro Data Result Diagrams: 08/07/21 20:25 Labs: Laboratory Results - last 24 hr 08/08/21 11:03: POC Glucose 91 08/08/21 13:11: POC Glucose 87 08/08/21 14:22: POC Glucose 76 08/08/21 15:30: POC Glucose 69 L 08/08/21 16:25: POC Glucose 77 08/08/21 17:59: POC Glucose 82 08/09/21 06:01: POC Glucose 97 Micro: Microbiology 08/08/21 02:40 Nasal Secretion SARS-CoV-2 Antigen (Rapid) - Final Physical Exam Const alert and oriented x3 HEENT normocephalic Eyes PERRL Neck full ROM Resp normal respiratory effort GI soft to palpation GI Narrative: FF below U Assessment & Plan (1) Gestational diabetes: QUALIFIERS: Gestational diabetes mellitus control: unspecified Trimester: third trimester Qualified Code(s): O24.419 - Gestational diabetes mellitus in , unspecified control COMMENT: nl growth 07/18, per pt request metformin managed by Endocrinology. Growth at 32 and 36w. Twice wkly NST at 32 wk.Discussed timing of delivery 39w. IOL 12/5 @ 7pm (2) Vaginal delivery: COMMENT: 39 SM IOL GDMA2 girl [place] PLAN: s/p PPD # 1 1. routine post delivery care 2. breast feeding- support given 3. rh positive 4. rubella immune 5. glucose readings WNL
[2021-08-09 09:24] VITALS: BP 94/59; PULSE 101; RESP 16; TEMP 36.7
[2021-08-09] MEDS: Acetaminophen 500 MG Tablet 1000 MG PO (09:37)
[2021-08-09 13:19] VITALS: BP 103/74; PULSE 104; RESP 16; TEMP 36.6; O2SAT 97
[2021-08-09 15:30] VITALS: BP 108/70; PULSE 94; RESP 16; TEMP 36.6
[2021-08-09 20:30] VITALS: BP 108/79; PULSE 95; RESP 18; TEMP 36.3; O2SAT 97
[2021-08-10 03:00] VITALS: BP 103/70; PULSE 90; RESP 16; TEMP 36.3; O2SAT 98
[2021-08-10 08:17] VITALS: BP 112/78; PULSE 84; RESP 16; TEMP 36.3; O2SAT 98
--- NOTE | 2021-08-10 08:32 | PCM.PN.OB ---
Subjective Subjective Patient doing well without complaints. Tolerating PO. Ambulating and voiding without difficulty. Feeding well. Denies chest pain, shortness of breath, calf pain/swelling, fevers, chills, lightheadedness. Objective Data Objective Data Vital Signs: Vital Signs Temp Pulse Resp BP Pulse Ox 97.4 F L 84 16 112/78 98 08/10/21 08:17 08/10/21 08:17 08/10/21 08:17 08/10/21 08:17 08/10/21 08:17 Oxygen Delivery Method Room Air Weight: 152 lb 12.485 oz Body Mass Index (BMI) 28.8 Intake & Output: Intake and Output for Last 24 Hours 08/08/21 08/09/21 08/10/21 23:59 23:59 23:59 Intake Total 3265.53 / 3265.53 Output Total 1350 / 1350 Balance 1915.53 / 1915.53 Lab / Micro Data Result Diagrams: 08/07/21 20:25 Micro: Microbiology 08/08/21 02:40 Nasal Secretion SARS-CoV-2 Antigen (Rapid) - Final Physical Exam Const alert and oriented x3 HEENT normocephalic Eyes PERRL Neck full ROM Resp normal respiratory effort GI soft to palpation GI Narrative: FF below U Assessment & Plan (1) Vaginal delivery: COMMENT: 39 SM IOL GDMA2 girl July (2) Gestational diabetes: QUALIFIERS: Gestational diabetes mellitus control: unspecified Trimester: third trimester Qualified Code(s): O24.419 - Gestational diabetes mellitus in , unspecified control COMMENT: nl growth 07/18, per pt request metformin managed by Endocrinology. Growth at 32 and 36w. Twice wkly NST at 32 wk.Discussed timing of delivery 39w. IOL 12/ @ 7pm PLAN: s/p PPD # 2 1. routine post delivery care 2. breast feeding- support given 3. rh positive 4. rubella immune 5. home today
== END 2021-08-10 10:50 | disposition home or self-care (01) | DRG 807 ==
PROVIDERS: Admitting Provider Obstetrics & Gynecology; PCP Nurse Practitioner Family; Visit Provider Obstetrics & Gynecology
DX: O24.420 Gestational diabetes mellitus in childbirth, diet controlled (principal); O99.824 Streptococcus B carrier state complicating childbirth; O70.0 First degree perineal laceration during delivery; O76 Abnormality in fetal heart rate and rhythm complicating labor and delivery; O69.81X0 Labor and delivery complicated by cord around neck, without compression, not applicable or unspecified; Z20.822 Contact with and (suspected) exposure to COVID-19; Z3A.38 38 weeks gestation of pregnancy; Z37.0 Single live birth
CPT/HCPCS: 59025; 59050; 82962; 85025; 86850; 86900; 86901; 87426; 99218; J7120; G0378

== ENCOUNTER → 2021-08-12 06:40 | Outpatient (CLI) | payer BC, SELFPAY | PROVIDERS: Referring Provider Obstetrics & Gynecology; Visit Provider Obstetrics & Gynecology | DX: R10.9 Unspecified abdominal pain (principal) | CPT/HCPCS: 87077; 87086; 87088; 87186 ==

== ENCOUNTER 2021-12-14 14:34 | Outpatient (CLI) | payer OTHER, SELFPAY ==
[2021-12-14 16:50] LABS: Absolute Neutrophil Count 3.9 X10^3/uL (2.0-7.7); Basophil# 0.04 X10^3/uL; Basophil% 0.5 % (0-1); Eosinophil# 0.18 X10^3/uL; Eosinophils% 2.3 % (0-5); Hematocrit 42.3 % (37-47); Hemoglobin 14.1 g/dL (12.0-15.0); Lymphocyte % 40.4 % (19-41); Mean Corp Hgb Conc 33.3 g/dL (32-36); Mean Corpuscular Hgb 30.6 pg (27.0-32.0); Mean Corpuscular Volume 91.8 fL (81-99); Mean Platelet Vol. 10.2 fl (6.2-12.0); Monocyte# 0.45 X10^3/uL; Monocyte% 5.9 % (0-10); NRBC Flagged by Analyzer 0 % (0-5); Neutrophil # 3.87 X10^3/uL (2.7-7.7); Neutrophil % 50.5 % (47-70); Platelet Count 306 K/mm3 (150-450); RBC Distribution Width CV 13.4 % (11.6-14.6); RBC Distribution Width SD 45.6 fl (35.1-43.9); Red Blood Count 4.61 M/mm3 (4.2-5.4); White Blood Count 7.7 K/mm3 (4.4-11.0)
[2021-12-14 17:09] LABS: AST(SGOT) 23 U/L (15-37); Alanine Aminotransfer ALT/SGPT 44 U/L (13-56); Albumin, Serum 3.9 g/dL (3.2-5.0); Alkaline Phosphatase 106 U/L (45-117); Anion Gap 3 (5-15); BUN 12 mg/dL (7-18); BUN/Creat Ratio 15.9 RATIO (10-20); Calcium,Total 8.8 mg/dL (8.5-10.1); Chloride 104 mmol/L (98-107); Cholesterol 167 mg/dL (200); Creatinine, Serum 0.75 mg/dL (0.55-1.02); EST Glomerular Filtration Rate 95 mL/min (>60); Est Glom Filt Rate - Afr Amer 115 mL/min (>60); Globulin 3.8 g/dL (2.2-4.2); Glucose 117 mg/dL (74-106); High Density Lipoprotein 56 mg/dL; Potassium 3.7 mmol/L (3.5-5.1); Protein, Total 7.7 g/dL (6.4-8.2); Sodium Level 139 mmol/L (136-145); Thyroid Stim Hormone (TSH) 2.24 uIU/mL (0.358-3.74); Triglycerides 192 mg/dL; Very Low Density Lipoprotein 38 mg/dL (5-40)
== END 2021-12-14 23:59 | disposition home or self-care (01) ==
LOC: BIMLAB 14:35
PROVIDERS: PCP Nurse Practitioner Family; Referring Provider Physician Assistant; Visit Provider Physician Assistant
DX: Z00.00 Encounter for general adult medical examination without abnormal findings (principal); Z13.29 Encounter for screening for other suspected endocrine disorder
CPT/HCPCS: 36415; 80053; 80061; 84443; 85025

== ENCOUNTER → 2022-11-17 | Outpatient (CLI) | payer OTHER, SELFPAY ==
[2022-11-17 16:28] LABS: Absolute Lymphocyte Count 3.97 X10^3/uL (0.83-4.51); Absolute Neutrophil Count 4.5 X10^3/uL (2.0-7.7); Basophil# 0.08 X10^3/uL; Basophil% 0.9 % (0-1); Eosinophils% 1.1 % (0-5); Hemoglobin 13.8 g/dL (12.0-15.0); Lymphocyte # 3.97 X10^3/ul (0.83-4.51); Lymphocyte % 42.8 % (19-41); Mean Corp Hgb Conc 32.1 g/dL (32-36); Mean Corpuscular Hgb 29.7 pg (27.0-32.0); Mean Corpuscular Volume 92.5 fL (81-99); Monocyte# 0.62 X10^3/uL; Monocyte% 6.7 % (0-10); NRBC Flagged by Analyzer 0 % (0-5); Neutrophil # 4.47 X10^3/uL (2.7-7.7); Neutrophil % 48.2 % (47-70); Platelet Count 350 K/mm3 (150-450); RBC Distribution Width CV 11.9 % (11.6-14.6); RBC Distribution Width SD 40.4 fl (35.1-43.9); Red Blood Count 4.65 M/mm3 (4.2-5.4); White Blood Count 9.3 K/mm3 (4.4-11.0)
[2022-11-17 16:57] LABS: ALB/GLOB Ratio 1.1 RATIO (0.9-2.4); AST(SGOT) 18 U/L (15-37); Alanine Aminotransfer ALT/SGPT 32 U/L (13-56); Albumin, Serum 3.9 g/dL (3.2-5.0); Alkaline Phosphatase 87 U/L (45-117); Anion Gap 5 (5-15); BUN 20 mg/dL (7-18); BUN/Creat Ratio 23.8 RATIO (10-20); Calcium,Total 8.9 mg/dL (8.5-10.1); Chloride 107 mmol/L (98-107); Cholesterol 150 mg/dL (200); Creatinine, Serum 0.84 mg/dL (0.55-1.02); EST Glomerular Filtration Rate 83 mL/min (>60); Est Glom Filt Rate - Afr Amer 101 mL/min (>60); Globulin 3.5 g/dL (2.2-4.2); Glucose 99 mg/dL (74-106); High Density Lipoprotein 48 mg/dL; Potassium 4.1 mmol/L (3.5-5.1); Protein, Total 7.4 g/dL (6.4-8.2); Sodium Level 139 mmol/L (136-145); Thyroid Stim Hormone (TSH) 4.34 uIU/mL (0.358-3.74); Triglycerides 133 mg/dL; Very Low Density Lipoprotein 27 mg/dL (5-40)
[2022-11-17 17:03] LABS: Hemoglobin A1c 5.1 % (3.8-5.6)
[2022-11-20 09:19] LABS: T4 Free Direct 0.96 ng/dL (0.76-1.46)
== END | disposition home or self-care (01) ==
LOC: BIMLAB 15:48
PROVIDERS: PCP Nurse Practitioner Family; Visit Provider Nurse Practitioner Family
DX: Z00.00 Encounter for general adult medical examination without abnormal findings (principal); R79.89 Other specified abnormal findings of blood chemistry
CPT/HCPCS: 36415; 80053; 80061; 83036; 84439; 84443; 85025

== ENCOUNTER → 2024-01-11 | Outpatient (CLI) | payer OTHER, SELFPAY ==
[2024-01-11 11:22] LABS: Absolute Lymphocyte Count 2.97 X10^3/uL (0.83-4.51); Absolute Neutrophil Count 3.8 X10^3/uL (2.0-7.7); Basophil# 0.09 X10^3/uL; Basophil% 1.2 % (0-1); Eosinophil# 0.22 X10^3/uL; Eosinophils% 2.9 % (0-5); Hemoglobin 13.5 g/dL (12.0-15.0); Lymphocyte # 2.97 X10^3/ul (0.83-4.51); Lymphocyte % 38.7 % (19-41); Mean Corp Hgb Conc 32.1 g/dL (32-36); Mean Corpuscular Hgb 29.7 pg (27.0-32.0); Mean Corpuscular Volume 92.5 fL (81-99); Mean Platelet Vol. 10.2 fl (6.2-12.0); Monocyte% 7.8 % (0-10); NRBC Flagged by Analyzer 0 % (0-5); Neutrophil # 3.78 X10^3/uL (2.7-7.7); Neutrophil % 49.3 % (47-70); Platelet Count 337 K/mm3 (150-450); RBC Distribution Width CV 12.2 % (11.6-14.6); RBC Distribution Width SD 41.8 fl (35.1-43.9); Red Blood Count 4.54 M/mm3 (4.2-5.4); White Blood Count 7.7 K/mm3 (4.4-11.0)
[2024-01-11 12:07] LABS: Vitamin D,25 Hydroxy 51.4 ng/mL
[2024-01-11 12:26] LABS: AST(SGOT) 19 U/L (15-37); Alanine Aminotransfer ALT/SGPT 21 U/L (13-56); Albumin, Serum 3.8 g/dL (3.2-5.0); Alkaline Phosphatase 86 U/L (45-117); Anion Gap 4 (5-15); BUN 8 mg/dL (7-18); BUN/Creat Ratio 10.6 RATIO (10-20); Chloride 107 mmol/L (98-107); Cholesterol 156 mg/dL (200); Creatinine, Serum 0.76 mg/dL (0.55-1.02); EST Glomerular Filtration Rate 94 mL/min (>60); Est Glom Filt Rate - Afr Amer 113 mL/min (>60); Globulin 3.9 g/dL (2.2-4.2); Glucose 93 mg/dL (74-106); High Density Lipoprotein 45 mg/dL; Potassium 3.8 mmol/L (3.5-5.1); Protein, Total 7.7 g/dL (6.4-8.2); Sodium Level 138 mmol/L (136-145); Thyroid Stim Hormone (TSH) 3.35 uIU/mL (0.358-3.74); Triglycerides 69 mg/dL; Very Low Density Lipoprotein 14 mg/dL (5-40)
== END | disposition home or self-care (01) ==
LOC: BIMLAB 09:14
PROVIDERS: PCP Internal Medicine; Visit Provider Internal Medicine
DX: Z13.6 Encounter for screening for cardiovascular disorders (principal); E55.9 Vitamin D deficiency, unspecified; Z86.32 Personal history of gestational diabetes; R79.89 Other specified abnormal findings of blood chemistry
CPT/HCPCS: 36415; 80053; 80061; 82306; 84443; 85025